=== PATIENT | female | born 1980 | race Two or more races ===

== ENCOUNTER 2021-11-16 11:00 | Inpatient (IN) | payer OTHER ==
[~2021-11-16] VITALS: Ht 157.5 cm; Wt 92.1 kg
[2021-11-16] MEDS ORDERED: IRON PO (13:29)
[2021-11-22] MEDS ORDERED: IRON18 MG PO (08:17)
== END 2021-11-23 14:39 | DRG 743 ==
LOC: O/R 11-21 06:00 → SURG-SUITE 11-21 06:00 → SURH 11-21 07:00 → OB/GYN 11-21 11:56 → SURG-SUITE 11-21 13:21
PROVIDERS: ADMIT Obstetrics & Gynecology; ATTEND Obstetrics & Gynecology
PROC: 0UT70ZZ Resection of Bilateral Fallopian Tubes, Open Approach (ICD-10-PCS; 2021-11-21)
PROC: 0UT20ZZ Resection of Bilateral Ovaries, Open Approach (ICD-10-PCS; 2021-11-21)
PROC: 0UT90ZL Resection of Uterus, Supracervical, Open Approach (ICD-10-PCS; principal; 2021-11-21 07:00)
DX: D25.1 Intramural leiomyoma of uterus (principal); D25.0 Submucous leiomyoma of uterus; D25.2 Subserosal leiomyoma of uterus; N84.0 Polyp of corpus uteri; D27.0 Benign neoplasm of right ovary; Z20.822 Contact with and (suspected) exposure to COVID-19